=== PATIENT | female | born 1940 | race Caucasian/White ===

== ENCOUNTER → 2022-02-13 | Outpatient (CLI) | payer MEDICARE, OTHER | LOC: LAB 09:54 | DX: C18.7 Malignant neoplasm of sigmoid colon (principal); Z20.822 Contact with and (suspected) exposure to COVID-19 | CPT/HCPCS: U0003 ==

== ENCOUNTER 2022-03-12 22:15 | Emergency (ER) | payer MEDICARE, OTHER ==
[2022-03-12 22:51] LABS: HEMOGLOBIN 11.7 gm/dl (12.3-15.3); RED BLOOD COUNT 3.63 M/UL (4.00-5.10); WHITE BLOOD COUNT 10.5 K/UL (4.5-11.0)
[2022-03-12 23:13] LABS: BUN/CREATININE RATIO 20 (0-10)
== END 2022-03-13 09:26 ==
LOC: ER1 22:15
PROVIDERS: Physician Assistant Medical
DX: K75.0 Abscess of liver (principal); Z85.038 Personal history of other malignant neoplasm of large intestine; Z85.05 Personal history of malignant neoplasm of liver; Z90.49 Acquired absence of other specified parts of digestive tract; Z88.5 Allergy status to narcotic agent
CPT/HCPCS: 71045; 72131; 80053; 81001; 82550; 82553; 84484; 85025; 93005; 96365; 96375; 96376; 99285; J1170; J2405; J2543; J2550; Q9967